=== PATIENT | male | born 2000 | race Caucasian/White ===

== ENCOUNTER 2024-10-03 13:20 | Emergency (ER) | payer SELFPAY ==
[~2024-10-03] VITALS: Ht 167.6 cm; Wt 89.0 kg
[2024-10-03 13:27] VITALS: O2SAT 100
[2024-10-03 15:13] LABS: BASOPHILS % 0.3 % (0.0-2.0); HEMATOCRIT. 41.1 % (42.0-52.0); LYMPHOCYTES % 16.4 % (20.0-50.0); MEAN CORPUSCULAR HEMOGLOBIN 29.7 pg (28.0-32.0); MEAN CORPUSCULAR HGB CONC 34.2 g/dL (31.0-37.0); MEAN CORPUSCULAR VOLUME 86.9 fL (80.0-94.0); MEAN PLATELET VOLUME 9.3 fl (7.4-10.4); MONOCYTES % 5.9 % (2.0-8.0); NEUTROPHILS % 77.4 % (40.0-76.0); PLATELET 301 x1000/uL (130-400); RED BLOOD CELL COUNT 4.73 mill/uL (4.7-6.1); RED CELL DISTRIBUTION WIDTH 13.1 % (11.6-14.6); WHITE BLOOD COUNT 11.4 x1000/uL (4.5-11.0)
[2024-10-03 15:22] LABS: CHLORIDE 106 mEq/L (98-107); POTASSIUM 3.7 mEq/L (3.5-5.1); SODIUM 140 mEq/L (136-145)
[2024-10-03 15:23] LABS: CALCIUM 10.2 mg/dL (8.7-10.4); CARBON DIOXIDE 20 mEq/L (21-32)
[2024-10-03 15:25] LABS: PARTIAL THROMBOPLASTIN TIME 27.6 sec (23.4-31.0); PROTHROMBIN TIME 11.4 sec (9.6-11.0)
[2024-10-03 15:28] LABS: GLUCOSE 104 mg/dL (70-105); UREA NITROGEN BLOOD 9 mg/dL (9-23)
[2024-10-03 15:30] LABS: ALANINE AMINOTRANSFERASE 56 IU/L (10-49); ALBUMIN 5.2 g/dL (3.2-4.8); ASPARTATE AMINOTRANSFERASE 41 IU/L (<34); PHOSPHORUS 3.6 mg/dL (2.5-4.9); TROPONIN I HIGH SENSITIVITY 6 ng/L (3.0-53)
[2024-10-03 15:31] LABS: BILIRUBIN DIRECT < 0.1 mg/dL (<=3.0); BILIRUBIN TOTAL 0.3 mg/dL (0.1-1.0); ETHANOL BLOOD < 10 mg/dL (<10); PROTEIN TOTAL 8.2 g/dL (6.0-8.3)
[2024-10-03] MEDS: SODIUM CHLORIDE 0.9% 1,000 ML IV ONE (18:27)
[2024-10-03] MEDS: MAGNESIUM 2 G PREMIX 50 ML IV ONE (18:27)
[2024-10-03 20:30] VITALS: BP 121/67; PULSE 98; RESP 14; TEMP 37.28076; O2SAT 99
== END 2024-10-03 20:35 | disposition home or self-care (01) ==
LOC: ER 13:20
DX: R00.2 Palpitations (principal); E83.42 Hypomagnesemia
CPT/HCPCS: 80076; 80048; 80320; 83690; 83735; 84100; 85025; 85379; 85610; 85730; 84484; 36415; 71045; 93005; 96365; 99285; J3475; J7030; Z7610; G0480